=== PATIENT | female | born 2000 | race Caucasian/White ===

== ENCOUNTER 2022-03-11 00:09 | Day surgery (SDC) | payer MEDICAID ==
[2022-03-11] MEDS ORDERED: Ondansetron 4 MG/2 ML SDV IVPUSH ONE (01:40)
[2022-03-11] MEDS ORDERED: Sodium Chloride 0.9% 1,000 ML IV SCH (01:45)
[2022-03-11] MEDS: HYDROmorphone 0.5 MG/0.5 ML Syringe IVPUSH ONE ×2 (02:10→02:21)
[2022-03-11] MEDS ORDERED: Iopamidol 612 MG/ML 100 ML Bottle IVPUSH ONE (02:32)
[2022-03-11] MEDS ORDERED: Ertapenem 1 GM in Sodium Chloride 0.9% 50 ML IV STA (05:14)
[2022-03-11] MEDS ORDERED: Metoclopramide 10 MG/2 ML SDV IVPUSH STA (05:57)
[2022-03-11] MEDS ORDERED: Lactated Ringers 1,000 ML IV ONE (07:38)
[2022-03-11] MEDS ORDERED: Rocuronium 50 MG/5 ML Vial ONE (08:27)
[2022-03-11] MEDS ORDERED: Lidocaine 1% 6 ML ONE (08:27)
[2022-03-11] MEDS ORDERED: Succinylcholine 200 MG/10 ML MDV ONE (08:27)
[2022-03-11] MEDS ORDERED: HYDROmorphone 0.5 MG/0.5 ML Syringe ONE (08:28)
[2022-03-11] MEDS ORDERED: Propofol 200 MG/20 ML SDV ONE (08:28)
[2022-03-11] MEDS ORDERED: Bupivacaine 0.5%/EPINEPHrine 1:200,000 50 ML MDV ONE (08:29)
[2022-03-11] MEDS ORDERED: Midazolam 1 MG/ML 2 ML SDV ONE (08:29)
[2022-03-11] MEDS ORDERED: Lidocaine 1% 30 ML SDV ONE (08:29)
[2022-03-11] MEDS ORDERED: fentaNYL 100 MCG/2 ML SDV ONE (08:29)
[2022-03-11] MEDS ORDERED: Ondansetron 4 MG/2 ML SDV ONE (08:30)
[2022-03-11] MEDS ORDERED: Metoclopramide 10 MG/2 ML SDV ONE (08:30)
[2022-03-11] MEDS ORDERED: Dexamethasone 4 MG/ML 5 ML MDV ONE (09:55)
[2022-03-11] MEDS ORDERED: Neostigmine Methylsulfate 10 MG/10 ML MDV ONE (09:55)
[2022-03-11] MEDS ORDERED: Ketorolac 30 MG/ML SDV ONE (09:56)
[2022-03-11] MEDS ORDERED: HYDROmorphone 0.5 MG/0.5 ML Syringe IVPUSH PRN (09:59)
[2022-03-11] MEDS ORDERED: fentaNYL 100 MCG/2 ML SDV IVPUSH PRN (09:59)
== END 2022-03-11 12:20 | disposition home or self-care (01) ==
LOC: JD.ED 00:09 → JD.SDS 07:37
PROVIDERS: ATTEND Surgery
DX: K35.33 Acute appendicitis with perforation, localized peritonitis, and gangrene, with abscess (principal); E66.9 Obesity, unspecified; F17.220 Nicotine dependence, chewing tobacco, uncomplicated; K44.9 Diaphragmatic hernia without obstruction or gangrene; K57.30 Diverticulosis of large intestine without perforation or abscess without bleeding; Z68.36 Body mass index [BMI] 36.0-36.9, adult; Z88.1 Allergy status to other antibiotic agents; Z98.890 Other specified postprocedural states; Z20.822 Contact with and (suspected) exposure to COVID-19
CPT/HCPCS: 36415; 44970; 74177; 80053; 81001; 81025; 85007; 85027; 87635; 96361; 96365; 96375; 99285; J0330; J1100; J1170; J1335; J1885; J2250; J2405; J2704; J2710; J2765; J3010; J3490; J7030; J7120; Q9967; U0002